=== PATIENT | female | born 1985 | race Caucasian/White ===

== ENCOUNTER 2020-06-20 13:46 | Outpatient (CLI) | payer OTHER, SELFPAY ==
--- NOTE | ~2020-06-20 | US_ITS ---
EXAMINATION: US OB <=14 wk fetus w TV DATE: 06/20/2020 14:36 INDICATION: Gestational dating TECHNIQUE: Real-time transabdominal and transvaginal obstetric ultrasound. FINDINGS: No prior studies for comparison. The uterus measures 11.7 x 7 x 6.7 cm. There is an intrauterine gestational sac, with pole iden tified. The crown rump length measures 3.24 cm, which correlates with a estimated gestational age of 10 weeks 1 day. heart tones are identified measuring 173 BPM. IMPRESSION: 1. SL IUP with an EGA of 10 weeks, 1 days (EDC by current ultrasound of 01/15/2021). Reviewed, dictated and finalized at location B. IMPRESSION: 1. SL IUP with an EGA of 10 weeks, 1 days (EDC by current ultrasound of 01/16/20).
== END 2020-06-20 13:47 | disposition home or self-care (01) ==
PROVIDERS: PCP Internal Medicine; Visit Provider Obstetrics & Gynecology
DX: Z32.01 Encounter for pregnancy test, result positive (principal); Z3A.10 10 weeks gestation of pregnancy
CPT/HCPCS: 76801; 76817

== ENCOUNTER 2020-12-26 16:50 | Inpatient (IN) | payer OTHER, SELFPAY ==
[2020-12-26] VITALS (72 sets, daily range): BP systolic 61–157; BP diastolic 38–111; PULSE 68–152; TEMP 36.6–37.6; O2SAT 84–100; BMI 36.1
--- NOTE | 2020-12-26 16:50 | LDADM ---
This patient, Bel Servin, was admitted to Labor/Delivery/Recovery 102 on 12/26/20 at 16:50. Plans for labor, pain management and were discussed with patient. Patient/family oriented to hospital policies and general routines including ID bracelet, bed and alarms, visiting hours, pain management, procedures, bathroom and other care routines, personal items, smoking policy, room service/diet and guest tray routines, security routines, and visiting hours. Patient/Family are encouraged to report perceived risks to care and to ask questions if they do not understand what they are told or what they should do. See OBIX for further documentation.
[2020-12-26] MEDS: LACTATED RINGERS 1,000 ML 125 ML IV CONT ×4 (18:10→23:28)
[2020-12-26 18:23] LABS: Basophils Percent Auto 0.2 % (0.2-1.2); Eosinophils Absolute Auto 0.1 K/mm3 (0-0.3); Eosinophils Percent Auto 0.3 % (0-4.4); Hematocrit 37.9 % (37.0-47.0); Hemoglobin 11.7 g/dL (12.0-15.0); Immature Granulocyte Absolute 0.11 K/mm3 (0.00-0.031); Immature Granulocyte Percent A 0.6 % (0-0.5); Immature Platelet Fraction Pct 5.2 % (0.9-11.2); Lymphocytes Absolute Auto 1.81 K/mm3 (0.9-3.2); Lymphocytes Percent Auto 10.5 % (18.3-44.2); Mean Corpuscular HGB Conc 30.9 g/dl (32-36); Mean Corpuscular Hemoglobin 21.6 pg (26-34); Mean Corpuscular Volume 69.9 fl (80-100); Monocytes Absolute Auto 0.9 K/mm3 (0.1-0.6); Monocytes Percent Auto 5.4 % (2.6-8.5); Neutrophils Absolute Auto 14.3 K/mm3 (1.3-6.7); Platelet Count Result 312 k/mm3 (150-375); Red Blood Count 5.42 M/mm3 (4.2-5.4); Red Cell Distribution Width 20.1 % (11.5-14.5); White Blood Count 17.2 K/mm3 (4.5-10.0)
[2020-12-26 18:29] LABS: Glucose Point of Care 66 (65-105)
[2020-12-26 18:30] LABS: Uric Acid 4.7 mg/dL (2.5-7.5)
[2020-12-26 18:32] LABS: Alanine Aminotransferase 18 U/L (4-35); Albumin Level 3.6 g/dL (3.5-5.1); Alkaline Phosphatase 136 U/L (38-126); Anion Gap 7 mmol/L (8-16); Aspartate Amino Transferase 27 U/L (14-36); Bilirubin,Total 0.3 mg/dL (0.2-1.3); Blood Urea Nitrogen 4 mg/dL (7-17); Carbon Dioxide 23 mmol/L (22-30); Chloride 106 mmol/L (98-107); Estimated CRCL calculation 134 ml/min; Estimated Glomerular Filt Rate > 60; Glucose 75 mg/dL (65-105); Potassium 3.7 mmol/L (3.4-5.0); Sodium 136 mmol/L (137-145)
[2020-12-26 18:35] LABS: Platelet Estimate Adequate (Adequate)
[2020-12-26 18:36] LABS: Ovalocytes 1+ (NORMAL)
--- NOTE | 2020-12-26 18:58 | WPDANESEPP ---
Anes - Eval Pre Procedure Procedure: labor epidural Date/Time: 12/26/20 18:58 Surgeon: debby Preop Diagnosis: labor pain Pre Op Diagnosis: ctx Patient Data Age: 35 Gender: F Height: 1.57 m Weight: 89.5 kg Last Vital Signs Pulse 147 H 12/26/20 18:58 BP 111/62 12/26/20 18:58 Pulse Ox 100 12/26/20 18:55 Allergies Allergy/AdvReac Type Severity Reaction Status Date / Time No Known Allergies Allergy Verified 10/17/18 11:49 Home Medications Medication Instructions Recorded Confirmed Type PNV cmb#95-ferrous fumarate-FA 1 tablet PO DAILY 12/19/20 12/19/20 History [] ergocalciferol (vitamin D2) 1,250 mcg PO WEEKLY 12/19/20 12/19/20 History [Vitamin D2] ferrous sulfate [Iron (ferrous 325 mg PO DAILY 12/19/20 12/19/20 History sulfate)] Laboratory Tests 12/26/20 12/26/20 12/26/20 18:07 18:08 18:08 WBC 17.2 K/mm3 H K/mm3 (4.5-10.0) RBC 5.42 M/mm3 H M/mm3 (4.2-5.4) Hgb 11.7 g/dL L g/dL (12.0-15.0) Hct 37.9 % % (37.0-47.0) MCV 69.9 fl L fl (80-100) MCH 21.6 pg L pg (26-34) MCHC 30.9 g/dl L g/dl (32-36) RDW 20.1 % H % (11.5-14.5) Plt Count 312 k/mm3 k/mm3 (150-375) MPV TNP Immature Gran % (Auto) 0.6 % H % (0-0.5) Neut % (Auto) 83.0 % H % (45.5-73.1) Lymph % (Auto) 10.5 % L % (18.3-44.2) [place] % (Auto) 5.4 % % (2.6-8.5) Eos % (Auto) 0.3 % % (0-4.4) Baso % (Auto) 0.2 % % (0.2-1.2) Lymph # (Auto) 1.81 K/mm3 K/mm3 (0.9-3.2) [place] # (Auto) 0.9 K/mm3 H K/mm3 (0.1-0.6) Eos # (Auto) 0.1 K/mm3 K/mm3 (0-0.3) Baso # (Auto) 0.0 K/mm3 K/mm3 (0.0-0.1) Abs Immat Gran (auto) 0.11 K/mm3 H K/mm3 (0.00-0.031) Absolute Neuts (auto) 14.3 K/mm3 H K/mm3 (1.3-6.7) Absolute Nucleated RBC 0.0 K/mm3 K/mm3 (0.0-0.012) Nucleated RBC % 0.0 % % (0.0-0.2) Platelet Estimate Adequate (Adequate) % Immature Plt Fraction 5.2 % % (0.9-11.2) Ovalocytes 1+ (NORMAL) Sodium Potassium Chloride Carbon Dioxide Anion Gap BUN Creatinine Estim Creat Clear Calc Estimated GFR Glucose POC Capillary Glucose Uric Acid 4.7 mg/dL mg/dL (2.5-7.5) Calcium Total Bilirubin AST ALT Alkaline Phosphatase Total Protein Albumin RPR Pending 12/26/20 12/26/20 18:08 18:26 WBC RBC Hgb Hct MCV MCH MCHC RDW Plt Count MPV Immature Gran % (Auto) Neut % (Auto) Lymph % (Auto) [place] % (Auto) Eos % (Auto) Baso % (Auto) Lymph # (Auto) [place] # (Auto) Eos # (Auto) Baso # (Auto) Abs Immat Gran (auto) Absolute Neuts (auto) Absolute Nucleated RBC Nucleated RBC % Platelet Estimate % Immature Plt Fraction Ovalocytes Sodium 136 mmol/L L mmol/L (137-145) Potassium 3.7 mmol/L mmol/L (3.4-5.0) Chloride 106 mmol/L mmol/L (98-107) Carbon Dioxide 23 mmol/L mmol/L (22-30) Anion Gap 7 mmol/L L mmol/L (8-16) BUN 4 mg/dL L mg/dL (7-17) Creatinine 0.50 mg/dL L mg/dL (0.7-1.0) Estim Creat Clear Calc 134 ml/min ml/min Estimated GFR > 60 (59 - ) Glucose 75 mg/dL mg/dL (65-105) POC Capillary Glucose 66 mg/dl mg/dl (65-105) Uric Acid Calcium 9.0 mg/dL mg/dL (8.4-10.2) Total Bilirubin 0.3 mg/dL mg/dL (0.2-1.3) AST 27 U/L U/L (14-36) ALT
--- NOTE | 2020-12-26 19:04 | WPDANESEFPP ---
Anes - Eval Final PreProcedure Day of Procedure 12/26/20 19:04 Patient weight: overweight Heart: regular rate and rhythm Lungs: clear to auscultation and normal air movement Airway: Mallampati scale class II Neurological: alert and oriented ASA classification: II Anesthetic plan: proceed Anesthesia type and monitoring: regional epidural and standard monitoring Informed Consent: The patient's anesthetic plan and its attendant risks and benefits were discussed with the patient/family/POA. Questions were solicited and answers provided to the satisfaction of the patient/family/POA.
[2020-12-26 23:03] LABS: Glucose Point of Care 105 (65-105)
[2020-12-27] VITALS (51 sets, daily range): BP systolic 102–165; BP diastolic 45–152; PULSE 72–117; RESP 16–20; TEMP 36.6–37.2; O2SAT 100
[2020-12-27] MEDS: ONDANSETRON INJ 4 MG/2 ML VIAL IV PUSH (00:38)
[2020-12-27 04:42] LABS: Glucose Point of Care 101 (65-105)
[2020-12-27] MEDS: LACTATED RINGERS 1,000 ML 125 ML IV CONT (07:36)
[2020-12-27] MEDS: OXYTOCIN 30 UNITS/NS 500 ML 30 UNITS/500 ML BAG 125 UNITS IV CONT ×2 (07:37→10:02)
[2020-12-27 08:53] LABS: Glucose Point of Care 71 (65-105)
--- NOTE | 2020-12-27 09:23 | P.HP_ITS ---
Obstetrics - Admit Note Admission Note: admitted for Labor progressed to 7 cm spontaneous rupture of membranes. pitocin started. complete and pushing on arrival. record reviewed. No pertinent additions to the history and/or any subsequent changes in the physical findings that are not consistent with the expected course of the pr egnancy were found. Additions to the history and/or subsequent changes in the physical findings follow. None.
[2020-12-27 10:14] LABS: Rapid Plasma Reagin Non-Reactive (NonReactive)
[2020-12-27] MEDS: BENZOCAINE 20% AER SPR (*SP) 56 GM CAN 1 SPRAY TOPICAL (11:35)
[2020-12-27] MEDS: WITCH HAZEL 40 PADS 1 PAD TOPICAL (11:35)
[2020-12-27] MEDS: IBUPROFEN 600 MG TABLET PO ×2 (11:36→16:52)
--- NOTE | 2020-12-27 13:48 | PC.NURSE ---
1305 Mother called out for assist with feeding, reporting infant eagerly latched first feeding. Mother reports this is 3rd child 3rd to breastfeed last child is 6 years old. Reviewed feeding cues, frequencies, duration of feedings, feeding elimination flow sheet, and signs of adequate intake. Demonstrated stimulation techniques to wake for feeding. Assisted with to breast. Reviewed positioning/alignment in cross cradle, holding breast in U hold and guided asymmetrical latch on. was able to latch correctly. Infant nursed eagerly, with steady draws and frequent swallowing noted. Reviewed signs of a correct latch, effective nursing and suck swallow ratio. Mother reported slight discomfort, infant has slipped to shallow latch. Demonstrated how to adjust latch more deeply while feeding. Suggested mother stimulate infant while feeding to keep infant awake and nursing effectively for stimulation of milk supply, increased intake and to assist infant maintain deep latch. Infant was able to maintain latch without discomfort to mother. Nipple care reviewed, lanolin provided. Advised to call out if mother has difficulties latching to left. Suggested mother roll out nipple and/or try football position. Instructed mother to call out for RN assistance if she is unable to latch for feeding or she has discomfort with nursing. Instructed feeding should be initiated three hours from start of last feeding or if feeding cues are noted before. Mother voiced understanding of information shared.
--- NOTE | 2020-12-27 14:52 | PC.NURSE ---
Addendum entered by Leia Tariq RN 12/27/20 14:54: Admitted to room 291 at 1158. Original Note: Patient transferred to post room #290 per wheelchair. Support person present. Oriented to unit, room, information board, rooming in, admission packet and security measures. Patient verbalizes understanding.
[2020-12-27] MEDS: LANOLIN (LANSINOH) 7.5 GM CREAM 1 APPLIC TOPICAL (16:52)
[2020-12-27] MEDS: DOCUSATE SODIUM 100 MG CAPSULE PO (16:52)
[2020-12-28] MEDS: IBUPROFEN 600 MG TABLET PO ×2 (03:25→11:18)
[2020-12-28 03:30] VITALS: BP 115/78; PULSE 77; RESP 16; TEMP 36.7
[2020-12-28 04:54] LABS: Hematocrit 32.8 % (37.0-47.0)
--- NOTE | 2020-12-28 07:45 | PM.OBPRVD ---
OB - Delivery Note Procedure Delivery date: 12/27/20 Procedure: events: Labor Augmentation Intrapartal events: None Delivery augmentation: pitocin Delivery monitor: external FHT and external uterine Route of delivery: Laceration Description: None Specimen: Yes Quantitative Blood Loss (ml): 300 Anesthesia type: Epidural Disposition: floor Baby Date of : 12/27/20 Time of : 09:01 Weeks of gestation at delivery: 37 gender: Female Weight (pounds): 7 Weight (ounces): 12 presentation: vertex position: Left Occiput Anterior Placenta delivery description: Spontaneous cord vessel description: 3 Vessels and Clamped/Cut score one minute: 8 score five minutes: 8
[2020-12-28 08:30] VITALS: BP 134/84; PULSE 73; RESP 18; TEMP 36.5; O2SAT 99
--- NOTE | 2020-12-28 08:49 | WPDANLDPN2 ---
Anes-Prog Note L&D Date/Time: 12/28/20 08:49 Comfortable throughout: labor and delivery Neuraxial method: epidural Epidural/Spinal procedure site: clean & non-tender Neuro status: Neuro function grossly intact. Cardiovascular status: normal Respiratory status: normal Airway patency: baseline Mental status: baseline Post-Op hydration status: normal Vital Signs: Last Vital Signs Temp 36.7 C 12/28/20 03:30 Pulse 77 12/28/20 03:30 Resp 16 12/28/20 03:30 BP 115/78 12/28/20 03:30 Pulse Ox 100 12/27/20 16:00 Pain score (VAS): 0 Post-procedural complaints: none Patient feedback: Patient satisfied with anesthetic care.
[2020-12-28] MEDS: MULTIVIT/MIN/PREN/FOL AC/IRON TABLET 1 TAB PO (11:18)
--- NOTE | 2020-12-28 15:18 | PCDIET ---
1047 Consult with pt., mother states has been sleepy, she has began supplementation and pumping. Mother puts to breast first for most feedings. She reports she is not pumping regularly. Discussed stimulation and milk supply. Mother reports first children took several days to transition to independent once her milk was in. Mother is able to independently latch infant with appropriate positioning/alignment when is awake and eager. She denies any nipple discomfort, is feeding as required and waking to feed if needed. Infant has had several effective feedings in the past 24 hours, and is currently meeting outcomes for weight, output, jaundice and feeding frequencies. Mother will supplement if she does not feel infant had a good feeding or if infant does not latch. Mother states she feels confident to continue attempting/bottle feeding and pumping to offer EBM/formula home. Reviewed transition to breast milk, signs of adequate intake, and engorgement/relief. Instructed to call ICP if intake/output less than required. Reviewed regular medications mother is taking. Information provided per Michelle. Reviewed community resources on the [facility] website and in the Mom/Baby guide. Information on outpatient services provided. Mother has no further questions at this time.
[2020-12-29 08:20] VITALS: BP 128/88; PULSE 71; RESP 20; TEMP 36.9; O2SAT 100
--- NOTE | 2021-01-07 08:21 | PM.OBDSVD ---
DS: Admitting Diagnosis Admitting Diagnosis Admitting Diagnosis: induction OB - DS: Summary OB Procedures : Ultrasound OB Procedures Intrapartum: Spontaneous Vag Delivery OB Procedures: : None Time Spent with Patient Time attestation: Total time spent providing and/or coordinating discharge services: DS: Data Data Completed and Pending Completed studies during hospitalization: Pending at discharge 12/27/20 09:19 Surgical [PTH] Routine Discharge Plan Discharge Attending physician on discharge: Norbert Diehl Discharging Clinician: Norbert Diehl Patient Disposition: Home, Self-Care Activity: may shower Diet: regular Discharge Instructions: Education: Mom and Baby Guide Given to: Mother Follow-Up: Call your delivering provider's office for an appointment to be seen in: Call for appointment Mom and baby should come to the [facility] for the follow-up appointment. Appointment Date/Time: December 29, 2020 at 8:00 am What to expect at your follow-up visit: Physical Assessment Call [phone] if you are unable to keep your appointment time. BREAST CARE: * Wear a snug supportive bra. * For engorgement discomfort: Breast Feeding: * Apply warm moist washcloths * Express milk as needed to relieve engorgement * Wear loose clothing * For sore nipples: * Identify correct latch-on * Apply warm moist washcloths before and after nursing * Air dry nipples after nursing * May apply Lansinoh cream to nipples PERINEAL CARE: * Until bleeding stops, use your jero bottle after urinating * Change your pad frequently throughout the day * No tub baths until seen by your physician - You may shower ACTIVITY: * Rest as much as possible. * Do not exercise or lift anything heavier than your baby (such as laundry or other children.) * Avoid stairs or driving as much as possible. * Do not put anything into the vagina. No douching, tampons, or sexual activity until seen by physician. NOTIFY PHYSICIAN IF YOU HAVE ANY QUESTIONS OR IF ANY OF THE FOLLOWING SYMPTOMS OCCUR: * If your perineum becomes red, swollen, or more painful than what you have experienced in the hospital. * If your vaginal bleeding becomes foul smelling. * If your vaginal bleeding becomes more heavy than a period or if your bleeding changes from pink to bright red. However, you may pass an occasional walnut-sized clot once or twice for the first week . * If you experience a sharp, shooting pain in you calves. * If you discover a hard, reddened area on your breast or if you experience flu-like symptoms. DIET: * Eat regular, well-balanced meals. * Drink plenty of fluids daily. If , drink to thirst. Patient Instructions: Antibiotic Form Stand Alone Forms: General Discharge Information Follow-up/Referrals: Norbert Diehl MD [Physician] - Call for Appointment Discharge Medications: New norethindrone (contraceptive) [Ortho Micronor] 0.35 mg tablet 0.35 mg PO DAILY Qty: 28 RF: 5 Continued ferrous sulfate [Iron (ferrous sulfate)] 325 mg (65 mg iron) Tablet 325 mg PO DAILY RF: 0 ergocalciferol (vitamin D2) [Vitamin D2] 1,250 mcg (50,000 unit) Capsule 1,250 mcg PO WEEKLY RF: 0 PNV cmb#95-ferrous fumarate-FA [] 28 mg iron- 800 mcg Tablet 1 tablet PO DAILY RF: 0 Date of admission: 12/26/20 16:50 Primary Care Provider: Sravan,Karrie Renae Admitting Provider: Norbert Diehl Attending physician on admission: Norbert Diehl Condition: Stable
== END 2020-12-28 14:47 | disposition home or self-care (01) | DRG 560 ==
LOC: ANHLDR 17:56 → ANHOB2 12-27 12:01
PROVIDERS: Admitting Provider Obstetrics & Gynecology; PCP Internal Medicine; Visit Provider Obstetrics & Gynecology
DX: O36.63X0 Maternal care for excessive fetal growth, third trimester, not applicable or unspecified (principal); O76 Abnormality in fetal heart rate and rhythm complicating labor and delivery; Z3A.37 37 weeks gestation of pregnancy; Z37.0 Single live birth
CPT/HCPCS: 36415; 80053; 82948; 84550; 85014; 85018; 85025; 85055; 86592; 86850; 86900; 86901; 88307; A9270; J2405; J2590; J2795; J7120

== ENCOUNTER 2021-04-04 12:30 | Outpatient (RCR) | payer OTHER, SELFPAY ==
--- NOTE | 2021-03-26 14:15 | PTOPEVAL ---
INITIAL PHYSICAL THERAPY EVALUATION and PLAN OF CARE Thank you for referring Bel Servin to [facility].? Bel is scheduled to be seen for physical therapy? 2x/week for 2 weeks, 1x/wk x 2 weeks. Please review, sign, date and return this plan of care SANDOR. I agree with and certify that the following plan of care is medically necessary. Referring Physician Date Admitting Provider: Attending Provider: Norbert Diehl MD Referring Provider: *PT Outpatient Evaluation Start: 03/26/21 13:11 Freq: Status: Active Protocol: Document 03/26/21 13:11 JANET (Rec: 03/26/21 14:15 JANET [id number]) Therapy Assessment Status Assessment Status Assessment Status Evaluation Outpatient Past Medical History Past Medical History Source of Past Medical History Recalled from Previous Visit, Confirmed with Patient/Family Neurological History Hx Neurological Disorders No Significant History Cardiovascular History Hx Cardiac Disorders No Significant History Respiratory History Hx Respiratory Disorders No Significant History Gastrointestinal History Hx Gastrointestinal Disorders No Significant History Genitourinary History Hx Genitourinary Disorders No Significant History Musculoskeletal History Hx Orthopedic Surgery Yes: left knee replacement in 2019,right shoulder joint replaced Hx Rheumatoid Arthritis Yes Hematological History Hx Hematological Disorders No Significant History Endocrine History Hx Endocrine Disorders No Significant History HEENT History Hx Dental Problems Yes: wisdom teeth extraction Hx Eye Surgery Yes: Lasik Integumentary History Hx Skin Disorders No Significant History Reproductive History Hx Reproductive Disorders No Significant History Pain History History of Any Previous or Ongoing No Significant History Instance of Pain Anesthesia History Hx Anesthesia Reactions No Significant History Evaluation Information Problem Diagnosis diastasis of rectus abdominus Onset ~ 6 years ago with 2nd - now worsening with 3rd Subjective Information 3 children - vaginal births Query Text:As Reported By Patient/ all at 37 weeks 1st 12/2010 - 7 Family lbs, 10/2014 7 lbs 11 oz 3rd 11/2019 7 lbs 12 oz no major difficulty with labor and delivery Bel - began to feel difficulty with sitting up, core felt really weak - no pain MD noticed diastasis -
--- NOTE | 2021-04-11 12:41 | PCPTNOTE ---
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
--- NOTE | 2021-04-16 09:24 | PCPTNOTE ---
Patient called & cancelled scheduled appointment this date due to COVID, Portable Trackman tested positive and one of her kids has as well. She is getting tested for COVID as well.
--- NOTE | 2021-04-17 13:04 | PCPTNOTE ---
PHYSICAL THERAPY DISCHARGE SUMMARY Admitting Provider: Attending Provider: Norbert Diehl MD Patient:Bel Servin Date of :1985 Bel and her children have tested positive for COVID and with the quarantine time frame, Bel has decided to discharge herself from PT at this time. She was last seen 04/04/2021. Her initial visit was on 03/26/2021 13:00 and she had a total of 3 visits. The goals have been partially met. She was doing well with her HEP and she stated that she would continue with it on her own. She is welcomed to return to PT if she desires to do so in the future. Thank you for referring Bel to [facility]. Please review, sign, date and return this discharge summary SANDOR. I have been updated about Bel's current status and I agree with discharge from the above service at this time. Referring Physician Date
== END 2021-04-18 16:25 | disposition home or self-care (01) ==
LOC: ANHPT 12:30
PROVIDERS: PCP Internal Medicine; Visit Provider Obstetrics & Gynecology
DX: M62.08 Separation of muscle (nontraumatic), other site (principal)
CPT/HCPCS: 97110; 97161

== ENCOUNTER 2023-08-11 08:59 | Outpatient (CLI) | payer OTHER, SELFPAY ==
--- NOTE | ~2023-08-11 | XR_ITS ---
Right Knee Technique: AP, lateral, and sunrise views were obtained. Clinical History: Rheumatoid arthritis Findings: No fracture or dislocation is seen. Osseous alignment is anatomic. Joint spaces are preserv ed without degenerative or erosive change. Soft tissues are unremarkable. No joint effusion is seen. Impression: Unremarkable right knee radiographs. Reviewed, dictated and finalized at location . G FRAME GRINDER OPERATOR Impression: Unremarkable right knee radiographs.
--- NOTE | ~2023-08-11 | XR_ITS ---
Right foot Technique: AP, oblique, and lateral views were obtained. Clinical History: Rheumatoid arthritis Findings: No acute fracture or dislocation is seen. Hallux valgus noted. Joint spaces are preserved w ithout erosive or degenerative change. Soft tissues are unremarkable. Impression: Hallux valgus, otherwise unremarkable exam. Reviewed, dictated and finalized at location M. NCIAL AUDITOR Impression: Hallux valgus, otherwise unremarkable exam.
--- NOTE | ~2023-08-11 | XR_ITS ---
Left Hand Technique: PA, oblique, and lateral views were obtained. Clinical History: Rheumatoid arthritis Findings: No acute fracture or dislocation is seen. Osseous alignment is anatomic. Joint spaces are p reserved. Soft tissues are unremarkable. Impression: Unremarkable left hand. Reviewed, dictated and finalized at location . CH EMPLOYMENT COORDINATOR Impression: Unremarkable left hand.
--- NOTE | ~2023-08-11 | XR_ITS ---
Right wrist Technique: PA, oblique, lateral, and ulnar deviation views were obtained. Clinical History: Rheumatoid arthritis Findings: No acute fracture or dislocation is seen. Osseous alignment is anatomic. Joint spaces are p reserved. Soft tissues are unremarkable. Impression: Unremarkable right wrist radiographs. Reviewed, dictated and finalized at location . GER STATISTICAL PROGRAMMING Impression: Unremarkable right wrist radiographs.
--- NOTE | ~2023-08-11 | XR_ITS ---
Right Hand Technique: PA, oblique, and lateral views were obtained. Clinical History: Rheumatoid arthritis Findings: No acute fracture or dislocation is seen. Osseous alignment is anatomic. Joint spaces are p reserved. Soft tissues are unremarkable. Impression: Unremarkable right hand. Reviewed, dictated and finalized at location M. RECRUITER Impression: Unremarkable right hand.
--- NOTE | ~2023-08-11 | XR_ITS ---
Left wrist Technique: PA, oblique, lateral, and ulnar deviation views were obtained. Clinical History: Rheumatoid arthritis Findings: No acute fracture or dislocation is seen. Osseous alignment is anatomic. Joint spaces are p reserved. Soft tissues are unremarkable. Impression: Unremarkable left wrist radiographs. Reviewed, dictated and finalized at location . ECTIONAL MAINTENANCE TECHNICIAN Impression: Unremarkable left wrist radiographs.
--- NOTE | ~2023-08-11 | XR_ITS ---
Left foot Technique: AP, oblique, and lateral views were obtained. Clinical History: Rheumatoid arthritis Findings: No acute fracture or dislocation is seen. Osseous alignment is anatomic. Joint spaces are p reserved without erosive or degenerative change. Soft tissues are unremarkable. Impression: Unremarkable left foot radiographs. Reviewed, dictated and finalized at [facility]. IT CARD INTERVIEWER Impression: Unremarkable left foot radiographs.
== END 2023-08-11 09:00 | disposition home or self-care (01) ==
PROVIDERS: PCP Internal Medicine
DX: M05.79 Rheumatoid arthritis with rheumatoid factor of multiple sites without organ or systems involvement (principal); M20.11 Hallux valgus (acquired), right foot
CPT/HCPCS: 73110; 73130; 73564; 73630